=== PATIENT | male | born 1940 | race Caucasian/White ===

== ENCOUNTER 2016-02-16 09:41 | Emergency (ER) | payer OTHER ==
[2016-02-16] MEDS ORDERED: NS 1,000 ML IV ONE (09:44)
--- NOTE | 2016-02-16 09:46 | PROVIDER DOCUMENTATION ---
HPI-Musculoskeletal Pain/Inj - GENERAL Chief Complaint: Trauma Stated Complaint: FALL Time Seen by Provider: 02/16/16 09:42 Source: patient - HX OF PRESENT ILLNESS-MUSKULOSKELTAL Nature of Presenting Problem: patient is a 76 y/o M that presents to the ER via EMS after falling about 11 ft from ladder while working on roof. patient reports ladder slipping out. He doesn 't remember how he landed but reports no LOC. patient c/o back pain and left shoulder pain. Denies abdominal pain, headache, or neck pain. He was initially ambulatory on scene per EMS Quality of Pain: reports: dull Severity in ED: moderate Onset/Duration: abrupt, just prior to arrival Timing: still present, constant Modifying Factors: worse with: movement Locality of Occurance: Home Similar Symptoms Previously?: No Recently seen or treated by another doctor?: No - FALL INJURY Location of Pain/Injury: reports: upper extremity (left shoulder), back (lower back) Pain Radiation: reports: no radiation Reason for Fall: reports: slipped Symptoms prior to fall:: reports: none Loss of Consciousness: dazed Injury Associated Symptoms: reports: back/neck pain, joint pain. denies: dizziness, headaches, nausea, puncture wound, snap/crack/pop sensation, unable to bear weight, weakness, trouble walking Review of Systems - Adult - REVIEW OF SYSTEMS - ADULT Constitutional: denies: chills, fever Eyes: denies: decreased vision, double vision, eye pain Ears, Nose, Mouth & Throat: denies: epistaxis, nose pain, loose teeth, mouth/ dental pain, mouth swelling Cardiovascular: denies: chest pain, palpitations, syncope Respiratory: denies: cough, dyspnea on exertion, shortness of breath, wheezing Gastrointestinal: denies: abdominal pain, diarrhea, nausea, vomiting Genitourinary: denies: dysuria, frequency, hematuria, urgency Musculoskeletal: reports: back pain, joint pain. denies: muscle aches, neck pain Integumentary: reports: no symptoms reported Neurological: denies: dizziness/vertigo, headache/migraines, numbness, syncope Psychiatric: reports: no symptoms reported Endocrine: reports: no symptoms reported Hematologic/Lymphatic: reports: no symptoms reported Allergic/Immunologic: reports: no symptoms reported All Other Systems: Reviewed and Negative Past History - Adult - PAST MEDICAL HISTORY-ADULT Review of Records: reports: Old Records Reviewed, Nursing Assessment Review, Medications Reviewed - PRIOR SURGERIES/PROCEDURES Surgical/Procedure History: reports: other (renal surgery for cancer 20 years ago) - IMMUNIZATION STATUS Childhood Immunizations: See Nurse Assessment Flu Vaccine: See Nurse Assessment - FAMILY HISTORY Family History: reviewed, not pertinent - SOCIAL HISTORY Living Situation: family Physical Exam-Injury Related - Physical Exam-Injury Related Initial Vital Signs Reviewed: Yes General Appearance: alert, no apparent distress Immobilization?: backboard, C-collar, applied [employer]IOR [employer]ED[employer]ER Eyes: PERRL/EOMI, pink conjunctivae Head, Ears, Nose, Mouth & Throat: normocephalic/atraumatic, moist mucous membranes, normal ENT inspection, TMs normal, pharynx normal Respiratory: chest non-tender, lungs clear, normal breath sounds, no respiratory distress, no accessory muscle use, other (well healed midline scar) Cardiovascular: regular rate, rhythm, no edema, no murmur Abdominal Exam: normal bowel sounds, non tender, soft, no organomegaly, no pulsatile mass Back Exam: normal inspection, no CVA tenderness, no vertebral tenderness Extremity: normal range of motion, non-tender, normal inspection, no pedal edema , no calf tenderness, normal capillary refill, pelvis stable. negative: deformity, erythema Integumentary: normal color, warm/dry Neurologic: lens molder II-XII nml as tested, no motor/sensory deficits Psych/Mental Status: normal mood/affect, normal thought content, normal thought process, oriented x 3 - Glascow Coma Score Best Eye Response ([place]): (4) open spontaneously Best Verbal Response ([place]): (5) oriented Best Motor Response ([place]): (6) obeys commands [place] Total: 15 Progress - PLAN OF CARE/RESULTS Progress/Plan/Lab Results: plan of care-ct head/cspine/chest/abd/pelv 1141- spoke with patient regarding results, [facility] center will be contacted Vital Signs Temp Pulse Resp BP Pulse Ox 02/16/16 11:22 175/078 02/16/16 09:42 96.0 F L 70 16 149/081 96 Penicillins Allergy (Verified 02/16/16 09:46) Unknown Cetirizine HCl [Zyrtec] 10 mg PO DAILY 02/16/16 Laboratory 02/16/16 02/16/16 09:57 09:57 WBC 14.74 H RBC 4.82 Hgb 15.1 Hct 44.9 MCV 93.2 MCH 31.3 H MCHC 33.6 RDW Std Deviation 12.6 Plt Count 225 MPV 10.8 H Immature Gran % (Auto) 1.1 H Neut % (Auto) 69.1 Lymph % (Auto) 20.5 [place] % (Auto) 7.3 Eos % (Auto) 1.8 Baso % (Auto) 0.2 Immature Gran # (Auto) 0.16 H Neut # (Auto) 10.20 H Lymph # (Auto) 3.02 [place] # (Auto) 1.07 H Eos # (Auto) 0.26 Baso # (Auto) 0.03 Sodium 139 Potassium 4.3 Chloride 105 Carbon Dioxide 24 L Anion Gap 9 BUN 18 Creatinine 1.3 H Estimated GFR/1.73 m2 54 BUN/Creatinine Ratio 14 Glucose 175 H Calculated Osmolality 284 Calcium 8.8 Total Bilirubin 0.30 AST 97 H ALT 71 H Alkaline Phosphatase 45 Total Protein 6.9 Albumin 4.0 Globulin 3.0 Albumin/Globulin Ratio 1.0 Orders Category Date Time Status Saline Loc NOW Care 02/16/16 09:43 Active HEAD/C-SPINE W/O CONTRAST [CT] Stat Exams 02/16/16 09:43 Draft THORAX/ABDOMEN/PELVIS [CT] Routine Exams 02/16/16 09:55 Taken CBC WITH DIFF [HEME] Stat Lab 02/16/16 09:57 Completed COMPREHENSIVE METABOLIC PANEL [CHEM] Stat Lab 02/16/16 09:57 Completed 0.9% Sodium Chloride Inj [Ns] 1,000 ml Med 02/16/16 09:44 Discontinued IV 999 mls/hr Morphine Med 02/16/16 11:40 Discontinued 4 mg IV NOW ONE Ondansetron [Zofran] Med 02/16/16 11:40 Discontinued 4 mg IV NOW ONE - CT/MRI 1 CT Study: Cervical Spine, Head Impression: Normal CT Results: no fx cpsine, no head injury 2 CT Study: Abdomen, Pelvis, Thorax Impression: Abnormal CT Results: fx to right 9-11 ribs, compression fx to L1 with 33% spinal stenosis - CONSULTS/PCP/HOSPITALIST Notification #1 *Consult/PCP/Hospitalist*: Time Discussed: 11:57 Reason/Comments: fall, rib fxs, l1 compression fx with stenosis(spinal) Consult Disposition: other (transfer to [facility] ER) Departure - Departure Time of Disposition Order: 12:02 DIAGNOSIS: Fall from ladder, Multiple fractures of ribs, Compression fracture of L1 lumbar vertebra, Spinal stenosis of lumbar region Disposition: [facility] 02 Certified Medical Emergency: Emergent Condition: Stable Referrals: Dwaine Valladares MD [Primary Care Provider] - - Critical Care Note Total Time (mins): 35 Critical Care Statement: This patient required my direct personal management to treat or rule out processes, the absence of which, could potentiallly result in sudden, clinically significant life or limb threatening deterioration. Attestation - Scribe Verification/Attestation Scribe:: Peter Moulton Acting as Scribe for:: ePdro Tompkins Scribe documention review:: This chart was documented by a scribe and accurately reflects the service the provider performed and the decisions made by the provider. Physician Attestation - Physician Attestation I, the provider, attest to the following statement:: Pedro Tompkins Physician documentation Attestation:: This documentation recorded by the scribe accurately reflects the service I personally performed and the decisions made by me.
[2016-02-16 10:02] LABS: MANUAL DIFF NEEDED? NO
[2016-02-16 10:07] LABS: BASO% 0.2 % (0.0-0.8); EOS# 0.26 X1000 (0.0-0.7); EOS% 1.8 % (0.0-10.0); HEMATOCRIT 44.9 % (42.0-52.0); HEMOGLOBIN 15.1 g/dL (14.0-18.0); IMM GRAN# 0.16 X1000 (0.0-0.04); IMM GRAN% 1.1 % (0.0-0.5); LYMPH# 3.02 X1000 (1.2-3.4); LYMPH% 20.5 % (20.5-51.1); MCH 31.3 PG (27-31); MCHC 33.6 g/dL (33-37); MCV 93.2 FL (81-99); MONO# 1.07 X1000 (0.11-0.59); MONO% 7.3 % (1.7-9.3); MPV 10.8 FL (7.4-10.4); NEUT% 69.1 % (42.2-75.2); PLT 225 X1000 (130-400); RBC 4.82 XMIL (4.7-6.1)
[2016-02-16 10:57] LABS: CALCIUM 8.8 mg/dL (8.8-10.2); POTASSIUM 4.3 mmol/L (3.5-5.1); TOTAL BILIRUBIN 0.3 mg/dL (0.20-1.00); TOTAL PROTEIN 6.9 g/dL (6.3-8.3)
[2016-02-16 11:22] VITALS: BP 175/078
--- NOTE | 2016-02-16 11:27 | Diag Imaging Result Document ---
PROCEDURE NAME: HEAD/C-SPINE W/O CONTRAST - 02/16/2016 CT BRAIN AND CERVICAL SPINE WITHOUT CONTRAST. Dose reduction technique was not used. CT BRAIN: COMPARISON: No comparison films. FINDINGS: No parenchymal hemorrhage. No epidural or subdural hematoma. No subarachnoid hemorrhage. No skull fracture. No hydrocephalus. No mass identified on this noncontrasted exam. There is mucous in the ethmoid, sphenoid, frontal, and maxillary sinuses. IMPRESSION: 1. No hemorrhage. No injury. 2. Mild sinusitis. CT CERVICAL SPINE WITHOUT CONTRAST: FINDINGS: There is good alignment to the cervical spine. No precervical soft tissue swelling. No subluxation. Moderate degenerative changes throughout the cervical spine with multiple posterior bone spurs resulting in multilevel spinal stenosis. No fracture. IMPRESSION: No acute bony injury. A preliminary report was given at 10:55 a.m..
[2016-02-16] MEDS ORDERED: ZOFRAN IV ONE (11:40)
[2016-02-16] MEDS ORDERED: MORPHINE IV ONE (11:40)
--- NOTE | 2016-02-16 12:56 | Diag Imaging Result Document ---
PROCEDURE NAME: THORAX/ABDOMEN/PELVIS - 02/16/2016 CT CHEST, ABDOMEN, AND PELVIS WITH INTRAVENOUS CONTRAST. TECHNIQUE: Dose reduction technique not used. CT CHEST. FINDINGS: There are emphysematous changes. No pneumothoraces. No contusions. Increased markings in the posterior bases believed to be atelectasis. No pleural effusions. No thoracic aortic aneurysm or dissection. The heart is not enlarged. There are calcified mediastinal lymph nodes and left hilar lymph nodes. There are several scattered calcified granulomata. No compressed thoracic vertebra. The patient has scoliosis. There is a displaced fracture to the right tenth rib and apparent nondisplaced fractures to the ninth and eleventh ribs. No other injury to the chest. IMPRESSION: Basilar atelectasis with fractures to the right ninth through eleventh ribs. CT ABDOMEN AND PELVIS WITH INTRAVENOUS CONTRAST. FINDINGS: There is an acute compression fracture to the L1 vertebra. Loss of height of at least 33%. There is a retropulsed fragment into the canal resulting in at least moderate spinal stenosis. There is fatty infiltration of the liver. There are several hepatic cysts in addition to right renal cysts. No retroperitoneal hematoma. No laceration to the liver or spleen. No ascites. The right kidney has been removed. There is a small stone within the gallbladder. Normal pancreas and right adrenal gland. Normal aorta except for atherosclerotic calcifications. No bowel obstruction. There are scattered diverticula. The urinary bladder is distended and appears normal. No extravasation. IMPRESSION: 1. Compression fracture to the L1 vertebra with spinal stenosis. 2. Left nephrectomy. 3. Hepatic and right renal cysts. 4. Fatty infiltration of the liver. 5. Diverticulosis. A preliminary report was given at 11:21 a.m.
== END 2016-02-16 12:36 | disposition short-term general hospital (02) ==
LOC: P.ED 09:41
DX: S22.41XA Multiple fractures of ribs, right side, initial encounter for closed fracture (principal); S32.019A Unspecified fracture of first lumbar vertebra, initial encounter for closed fracture; M48.06 Spinal stenosis, lumbar region; M54.5 Low back pain; M25.512 Pain in left shoulder; W11.XXXA Fall on and from ladder, initial encounter
CPT/HCPCS: 36415; 70450; 71260; 72125; 74177; 80053; 85025; 96361; 96374; 96375; J2270; J2405; Q9967

== ENCOUNTER 2018-09-05 05:17 | Day surgery (SDC) ==
--- NOTE | 2018-08-29 09:00 | EKG Report ---
Test Performed on : 08/29/2018 08:37:47 AM Test Reason : PAT Blood Pressure : / mmHG Vent. Rate : 061 BPM Atrial Rate : 061 BPM P-R Int : 162 ms QRS Dur : 086 ms QT Int : 384 ms P-R-T Axes : 045 031 052 degrees QTc Int : 386 ms Normal sinus rhythm. Normal ECG No previous ECGs available Confirmed by Vadim Wilson MD ([id number]) on 08/29/2018 9:15:14 AM
[2018-08-29 09:16] LABS: HEMATOCRIT 46.5 % (42.0-52.0); HEMOGLOBIN 15.6 g/dL (14.0-18.0); MCH 31.2 PG (27-31); MCHC 33.5 g/dL (33-37); RDW 12.5 % (11.5-14.5); WBC 9.43 X1000 (4.8-10.8)
[2018-08-29 09:29] LABS: INR 0.96; PROTIME 13.6 Seconds (11.0-16.0)
[2018-08-29 09:30] LABS: PTT 29.8 Seconds (22.3-41.8)
[2018-08-29 09:39] LABS: CALCIUM 9.4 mg/dL (8.8-10.2); CREATININE 1.3 mg/dL (0.7-1.2); POTASSIUM 4.4 mmol/L (3.5-5.1)
[2018-09-05] MEDS ORDERED: LEVAQUIN 500 MG/D5W 500 MG/100 ML IVPB ONE (06:06)
[2018-09-05] MEDS ORDERED: LR 1,000 ML ONE ×2 (06:06→06:31)
[2018-09-05] MEDS ORDERED: FENTANYL ONE (06:27)
[2018-09-05] MEDS ORDERED: XYLOCAINE-MPF 2% ONE (06:27)
[2018-09-05] MEDS ORDERED: ROBINUL ONE (06:27)
[2018-09-05] MEDS ORDERED: DECADRON ONE (06:27)
[2018-09-05] MEDS ORDERED: ZOFRAN ONE (06:27)
[2018-09-05] MEDS ORDERED: DIPRIVAN 1% ONE (06:28)
[2018-09-05] MEDS ORDERED: QUELICIN (DOSE) ONE (06:30)
[2018-09-05] MEDS ORDERED: SODIUM CHLORIDE 0.9% 10 ML ONE ×2 (06:30→07:34)
[2018-09-05] MEDS ORDERED: NORCURON ONE (06:30)
[2018-09-05] MEDS ORDERED: SENSORCAINE 0.25%/EPI 1:200,000 ONE (06:31)
[2018-09-05] MEDS ORDERED: B & O 16A SUPP ONE (06:31)
[2018-09-05] MEDS ORDERED: ALBUMIN 25% ONE (06:47)
[2018-09-05] MEDS ORDERED: EPHEDRINE ONE (07:33)
[2018-09-05 07:56] LABS: URINE SOURCE CATH
[2018-09-05 08:23] LABS: BILIRUBIN URINE NEGATIVE (NEGATIVE); BLOOD URINE NEGATIVE (NEGATIVE); COLOR YELLOW; GLUCOSE URINE NEGATIVE (NEGATIVE); KETONE URINE NEGATIVE (NEGATIVE); LEUKOCYTES URINE NEGATIVE (NEGATIVE); NITRITE URINE NEGATIVE (NEGATIVE); PH URINE 5.5; PROTEIN URINE NEGATIVE (NEGATIVE); SP GRAVITY URINE 1.014; TURBIDITY URINE CLEAR (CLEAR); UROBILINOGEN URINE NORMAL (NORMAL)
[2018-09-05 08:24] LABS: UR EPITHELIAL CELLS <10 /HPF (<10); URINE BACTERIA NEGATIVE /HPF; URINE RBC <10 /HPF (<10); URINE WBC <10 /HPF (<10)
[2018-09-05] MEDS ORDERED: NEOSTIGMINE ONE ×2 (08:49→08:50)
[2018-09-05] MEDS ORDERED: OFIRMEV 1000 MG/ISOTONIC SOLN 1,000 MG/100 ML BOTTLE ONE (08:59)
[2018-09-05] MEDS ORDERED: NS 1,000 ML ONE (09:54)
[2018-09-05] MEDS ORDERED: MORPHINE IV PRN (09:57)
[2018-09-05] MEDS ORDERED: NORCO-7.5 PO PRN (10:00)
[2018-09-05] MEDS ORDERED: ZOFRAN IV PRN (10:00)
[2018-09-05] MEDS ORDERED: DILAUDID IV PRN (10:00)
[2018-09-05] MEDS ORDERED: DITROPAN PO PRN (10:00)
[2018-09-05] MEDS ORDERED: TYLENOL PO PRN (10:00)
[2018-09-05] MEDS ORDERED: B & O 15A SUPP PR PRN (10:00)
[2018-09-05] MEDS ORDERED: LABETALOL IV PRN (10:00)
[2018-09-05] MEDS ORDERED: PHENERGAN PO PRN (10:00)
[2018-09-05] MEDS ORDERED: NORCO-5 PO PRN (10:00)
[2018-09-05] MEDS ORDERED: NORCO-10 PO PRN (10:00)
[2018-09-05] MEDS ORDERED: OFIRMEV 1000 MG/ISOTONIC SOLN 1,000 MG/100 ML BOTTLE IV PRN (12:00)
[2018-09-05] MEDS: PERIDEX MT SCH (20:26)
[2018-09-05] MEDS: COLACE PO SCH (20:26)
[2018-09-05] MEDS: NS 1,000 ML IV SCH (20:26)
[2018-09-06] MEDS ORDERED: LEVAQUIN 500 MG/D5W 500 MG/100 ML IVPB IV SCH (06:00)
[2018-09-06 06:39] LABS: HEMATOCRIT 40.5 % (42.0-52.0); HEMOGLOBIN 13.5 g/dL (14.0-18.0); MCH 31.8 PG (27-31); MCHC 33.3 g/dL (33-37); MCV 95.3 FL (81-99); MPV 11.3 FL (7.4-10.4); RBC 4.25 XMIL (4.7-6.1); RDW 12.7 % (11.5-14.5); WBC 16.83 X1000 (4.8-10.8)
[2018-09-06 07:02] LABS: AGAP 15; BUN 17 mg/dL (8-22); CALCIUM 8.9 mg/dL (8.8-10.2); CHLORIDE 104 mmol/L (98-107); COSMO 285; CREATININE 1.1 mg/dL (0.7-1.2); ESTIMATED GFR > 60; GLUCOSE 179 mg/dL (70-104); POTASSIUM 4.1 mmol/L (3.5-5.1); SODIUM 140 mmol/L (136-145); TCO2 21 mmol/L (25-35)
[2018-09-06] MEDS: PERIDEX MT SCH ×2 (07:54→10:54)
[2018-09-06] MEDS: COLACE PO SCH ×2 (07:55→10:54)
[2018-09-06] MEDS: ZYRTEC PO SCH ×2 (07:55→10:54)
[2018-09-06] MEDS: PEPCID PO SCH ×2 (07:55→07:59)
[2018-09-06] MEDS: NS 1,000 ML IV SCH (10:54)
[2018-09-06 12:20] VITALS: BP 138/75
--- NOTE | 2018-09-07 15:07 | OPERATIVE NOTE ---
PROCEDURE DATE: 09/05/2018 SURGEON: Keith Russo MD PREOPERATIVE DIAGNOSES: Elevated prostate-specific antigen, prostate cancer, history of previous open abdominal surgery. POSTOPERATIVE DIAGNOSES: Elevated prostate-specific antigen, prostate cancer, history of previous open abdominal surgery. PROCEDURE: Extensive laparoscopic lysis of adhesions, robotic-assisted laparoscopic prostatectomy with unilateral nerve sparing, laparoscopic urethral suspension. INDICATIONS: A 78-year-old male who has had a history of previous open exploration with nephrectomy. 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 He elected to proceed with surgery. FINDINGS: He had extensive adhesions of small bowel and mesentery to the anterior abdominal wall along his large midline incision that extended all the way up to his xiphoid and well below umbilicus. It took me over 30 minutes to take down the adhesions and increased my operating time by over 30%. The adhesions were taken down successfully. Left side nerve sparing was performed. There was watertight vesicourethral anastomosis at 240 mL. PROCEDURE IN DETAIL: After obtaining informed consent, patient brought to the operating room. Perioperative antibiotics and general endotracheal anesthesia were administered. He was placed in lithotomy position, prepped and draped in sterile fashion. An 18-[place] Duarte catheter was introduced and bladder was drained. We began by making a small stab incision in his left upper quadrant given his midline large scar. I confirmed positive drop test, followed by aspiration of fluid in syringe without evidence of GI contents or blood. Upon attempting to insufflate the abdominal cavity his peritoneal pressure was quite high. Hence, we used a different area in the left lower quadrant to introduce the Veress needle and performed the same maneuvers to assure safe placement. We appeared to establish good pneumoperitoneal access as visible by the monitor reading pressures. His peritoneal cavity was insufflated to 15 mmHg. We then marked out our trocar sites in standard prostatectomy fashion, used 10 mL of 0.25% Marcaine with epinephrine to anesthetize the trocar sites at the skin level. Following that, Bovie electrocautery was used to make an incision in the left lower quadrant trocar. Through it the 8 mm trocar was introduced followed by insertion of a 5 mm laparoscopic camera. As I suspected he had quite a bit of adhesions of small bowel and mesentery along the ventral abdominal wall at the midline area. I was able to place 1 more trocar under direct vision and then used laparoscopic scissors to meticulously dissect off the adhesions from the anterior wall. There was small bowel as well as mesentery attached to the wall. I spent again just over 30 minutes taking down the adhesions. Eventually it appeared that we freed up enough space to place the rest of the trocars. There was no obvious bowel injury upon inspection of our work. I then placed the rest of the trocars in a standard fashion. He was repositioned in steep Trendelenburg position and the robot was docked. I began by mobilizing his descending colon particularly the sigmoid part given its adhesion to the lateral pelvic sidewall. Once that was done, we incised his peritoneum 3 cm above the rectum and identified the right vas deferens which was isolated and transected followed by identification and dissection of the right seminal vesicle. We used judicious cautery posterolaterally as to avoid the nerve injury. We performed the same thing on the left side. We then dissected anterior to vas deferens to the level of the prostate. We then dissected posterior to seminal vesicles by incising Denonvilliers' fascia and developing perirectal plane. Following that, attention was turned to dropping the bladder. We incised lateral to each medial umbilical ligament and gained access to the space of Retzius. We swept the fat off the endopelvic fascia and then incised the endopelvic fascia lateral along the contour of the prostate. Dissection extended down toward the apex of the prostate and puboprostatic ligaments were sharply incised. The superficial dorsal venous complex was controlled with bipolar electrocautery. Deep dorsal venous complex was controlled with 0 V-Loc suture in a [id number] fashion followed by anterior periosteal elevation. Attention was then turned to bladder neck which was identified by gentle tugging on the Duarte with the balloon inflated. Monopolar cautery was used to incise the bladder neck through the detrusor fibers until Duarte catheter was seen. It was brought into the field and then prostate was placed on anterior traction. The plane was then developed between the bladder and the prostate. He appeared to have a fairly well defined bladder neck. We continued dissection until previously freed up vas deferens and seminal vesicles came into the view. Those were brought into the field and placed in anterior traction with the fourth arm. Attention was then turned to exposing and freeing the neurovascular bundles. Given that his disease was on the right side, I attempted to perform intrafascial dissection and left-sided nerve sparing. On the right side I performed partial nerve sparing. We only used Hemiblock clips and avoided electrocautery allowing us to reflect the bundles at 5 and 7 o'clock. Dissection extended posterior to the prostate toward the apex. The apex of the prostate was transected sharply. I used maximal urethral length technique. Once the prostate was free it was delivered into the EndoCatch bag and eventually sent off to pathology. The operative field was irrigated and inspected for any active bleeding. There was none. We then turned attention to the Eric stitch. Three 0 V-Loc suture was used to reapproximate perivesical and periurethral fascia by using previously tied 3-0 V-Loc sutures. We then performed a formal vesicourethral anastomosis with another 3-0 V-Loc suture running in a clockwise and counterclockwise fashion and cross tying the 2 sutures. A fresh 18-[place] Duarte catheter was introduced with the balloon inflated. We tested the anastomosis by instilling 240 mL of sterile fluid into the bladder and there was no evidence of anastomotic leak. We then performed laparoscopic urethral suspension by using previously placed Eric sutures and suspending the urethra anteriorly by threading the suture through the periosteum lateral to the pubic symphysis. Following that, pneumoperitoneal pressure was decreased to 3 mmHg and there was no evidence of bleeding. We then undocked the robot. His wounds were copiously irrigated. 0 PDS was used to close the supraumbilical incision in a running fashion after the prostate was removed. 0 Vicryl suture was used to close the 12 mm trocar fascial defect in a [id number] fashion. Wounds were irrigated again. A 4-0 Monocryl suture was used for subcuticular closure. Covidien glue was then applied to the incisions. He was extubated taken to PACU for further recovery. ESTIMATED BLOOD LOSS: 75 mL. SPECIMEN: Prostate. DRAINS: 18-[place] Duarte catheter. COMPLICATIONS: None DISPOSITION: To PACU and subsequently to the floor for observation. cc: Keith Russo MD
== END 2018-09-06 12:56 | disposition home or self-care (01) ==
LOC: PAT 05:17 → OPS 05:17 → 4N 05:17 → OPS 09-06 12:56
PROVIDERS: ATTEND Urology
CPT/HCPCS: 80048; 81001; 85027; 85610; 85730; 88309; 88313; 94761; 94799; A9270; J0131; J0330; J1100; J1956; J2405; J3010; J7030; J7120; P9047; S2900